=== PATIENT | male | born 1975 | race Caucasian/White ===

== ENCOUNTER 2024-07-05 11:39 | Emergency (ER) | payer BC, SELFPAY ==
[2024-07-05 12:02] VITALS: BP 127/89
--- NOTE | 2024-07-05 12:07 | ED.MUSCINJ ---
HPI-Injury
<Viky Hernandez HAND STAMPER - Last Filed: 07/05/24 12:08>
General
Chief Complaint: Musculo-Skeletal Complaint
Time Seen by Provider: 07/05/24 12:35
<Eda Cain MD - Last Filed: 07/05/24 12:41>
History of Present Illness-Injury
Initial Injury comments:
49 yr old male who tripped, striking L acw into coffee table yesteray. Since then notes painwith palpation and movement, includ deep breathe. NO hemoptysis, leg swelling, active sob, cough, abd pain/n/v etc. Noother inj. No thinners.
ED Provider Triage
<Viky Hernandez HAND STAMPER - Last Filed: 07/05/24 12:08>
-
Patient seen by provider in Triage?: Seen in Triage
Attestation: A medical screening examination has been initiated by a qualified medical provider. Based on the assessment performed at this time, it has been determined that an emergent medical condition may exist and the patient has been informed
that further medical evaluation and possible additional diagnostic testing may be needed.
HPI: 49-year-old male states he hit his left upper ribs on a coffee table last night.
GENERAL: Alert , in no apparent distress
EYE: No visual abnormalities.
NECK: Trachea midline
ENT: No visible abnormalities.
LUNGS: No acute respiratory distress
NEUROLOGICAL: Alert and oriented
SKIN: Skin intact. No visible changes.
MUSCULOSKELETAL: Moving extremities normally
PSYCH: Normal and appropriate interaction.
This is a medical evaluation conducted in person to initiate diagnostic evaluation and provide initial therapeutics. Please see further documentation by the treating clinician.
Past History
<Eda Cain MD - Last Filed: 07/05/24 12:41>
Past History
ED Past Medical History: HTN and Hypercholesterolemia
Social History
Tobacco: Non-smoker
Alcohol: Occasional
Drug: None
Living: with family
Phy Exam
<Eda Cain MD - Last Filed: 07/05/24 12:41>
Physical Exam
Physical Exam:
AAO times three, well appearing
PE and round
mmm, o/p clr
neck supple
hrtrrr
lung cta, no w/r/r, no bruising/crepitus. TTP noted L acw at aprrox ics 10-11 area
abd soft, nt,nd
extrem no c/c/e
pysch apprporiate
neuor itnact
Injury Course
<Viky Hernandez HAND STAMPER - Last Filed: 07/05/24 12:08>
Orders/Labs/Results
Orders:
Orders
07/05/24 12:08
Ribs, Left 3 View W/PA Chest CR [CR Ribs-left 3 Vw W/pa Chest] Urgent
Comment:
Reason For Exam: Struck upper left ribs on a coffee table last nigh
<Eda Cain MD - Last Filed: 07/05/24 12:41>
Orders/Labs/Results
Orders:
Orders
07/05/24 12:08
Ribs, Left 3 View W/PA Chest CR [CR Ribs-left 3 Vw W/pa Chest] Urgent
Comment:
Reason For Exam: Struck upper left ribs on a coffee table last nigh
<Eda Cain MD - Last Filed: 07/05/24 12:41>
MDM/Problems Addressed
Differential Diagnosis Includes:
butnot limited to contusion, fx, ptx, hemothorax, splenic inj, etc etc
<Eda Cain MD - Last Filed: 07/05/24 12:41>
*Radiology
Radiology exam reviewed: preliminary read by ED provider (nad)
*Pulse Oximetry
Patient hypoxic: no
*EKG
Rate: EKG- N/A
*Vp Ad Products And Planning Interpretation
Rate: Vp Ad Products And Planning- N/A
*Critical Care Note
Total Time (30-74mins, 75-104mins- exclusive of procedures): Not Applicable
<Eda Cain MD - Last Filed: 07/05/24 12:41>
Update Note
Update Note:
1239 pt advised re:pain mangagement, pulmonary care/deep breathes, reasons to rted and improt of f/u
ED Attending Note
<Viky Hernandez NP - Last Filed: 07/05/24 12:08>
-
Portions of this chart may have been created with voice recognition software.� Occasional wrong word or��sound alike� substitutions may have occurred due to the inherent limitations of voice recognition software.
Discharge Plan
Departure
Patient Disposition: Home (Routine Discharge)
Date of Disposition: 07/05/24
Time of Disposition: 12:36
Patient with high blood pressure during this ER visit?: Yes
Condition: Good
Discharge Problem:
Contusion of rib
Instructions: Rib fracture or bruised rib - ED discharge instructions, BLOOD PRESSURE
Activity Restrictions/Additional Instructions:
IF YOU DEVELOP INCREASING/NEW/PERSISTENT PAIN, TROUBLE BREATHING, FEVER, DIZZINESS, OR OTHER WORRISOME SIGNS, GO TO THE ER IMMEDIATELY!
Interventions
Interventions:
*Risk Screen - Suicide Last Done: 07/05/24 12:02
*General Assessment Last Done: 07/05/24 12:05
*Neglect/Abuse Screening Last Done: 07/05/24 12:06
*ED COVID-19 Vaccine History Last Done: 07/05/24 12:06
ED-Musculoskeletal Assessment Last Done: 07/05/24 12:19
Discharge Date and Time
Print Language: [place]
== END 2024-07-05 12:47 | disposition home or self-care (01) ==
LOC: EMR 11:39
PROVIDERS: EMERGENCY PHYSICIAN Emergency Medicine
DX: S20.212A Contusion of left front wall of thorax, initial encounter (principal); W01.190A Fall on same level from slipping, tripping and stumbling with subsequent striking against furniture, initial encounter; I10 Essential (primary) hypertension; E78.00 Pure hypercholesterolemia, unspecified
CPT/HCPCS: 99283; 71101